=== PATIENT | male | born 1960 | race Caucasian/White ===

== ENCOUNTER 2018-01-17 21:10 | Emergency (ER) | payer OTHER ==
[~2018-01-17] VITALS: Ht 175.3 cm; Wt 72.3 kg
[~2018-01-17 21:10] MED LIST: ACYCLOVIR400 MG PO; ASPIRIN325 MG PO; AUGMENTIN80 MG/ML PO; AZITHROMYCIN250 MG1 PO; CARDIZEM30 MG PO; COLACE100 MG PO; COMBIVENT200 INHALA IH; DECADRON0.5 MG PO; DEXAMETHASONE4 MG PO; DEXAMETHASONE6 MG PO; DEXILANT60 MG PO; DIAZEPAM5 MG PO; DIOCTO50 MG/5 ML PO; FUROSEMIDE20 MG PO; GABAPENTIN300 MG PO; GABAPENTIN600 MG PO; HYCET 7.5 MG-3473 ML PO; LASIX20 MG PO; LITE COAT ASPI325 M1 PO; LORAZEPAM0.5 MG PO; LYRICA100 MG PO; MIRALAX17 GM PO; NASONEX17 GM BOTH NARES; NEURONTIN600 MG PO; NEXIUM20 MG PO; NICOTINE PATCH1 EACH TD; NORCO 5/3251 TABLET PO; OMEPRAZOLE-BIC1 EAC1 PO; OXYCODONE H5 MG/5 ML PO; OXYCODONE HCL10 MG PO; OXYCONTIN20 MG PO; OXYCONTIN30 MG PO; PERCOCET 5/31 TABLET PO; PRILOSEC10 MG PO; PROAIR RESPICL90 MCG IH; PROTONIX40 MG PO; REGLAN10 MG/10 M PO; ROXICODONE15 MG PO; SENNA176 MG/5 M PO; SENNA8.6 M1 PO; SPIRIVA1 INHALATI IH; SUPER B COMP1 TABLET PO; SUPER B-50 COM1 EACH PO; SYMBICORT60 INHALA1 IH; SYMBICORT60 INHALAT IH; VALIUM10 MG PO; VALIUM5 MG PO; VENLAFAXINE H37.5 MG PO; VENLAFAXINE HCL75 MG PO; VENTOLIN HFA18 GM IH; VITAMIN E400 UNIT PO; ZEGERID PO; ZOFRAN0.8 MG/1 M PO; ZOFRAN4 MG PO; [UNRECOGNIZED DRUG - REMARK] PO; mometasone
[2018-01-17 21:39] LABS: HEMATOCRIT 42.2 % (38.0-50.0); HEMOGLOBIN 14.5 G/DL (12.5-16.6); MCHC 34.4 G/DL (30.0-36.0); MCV 84.4 FL (86-99); PLATELET COUNT 217 K/uL (156-360); RBC DIS.WIDTH-SD 43.6 % (39-53); WHITE BLOOD COUNT 5.6 K/uL (4.1-10.2)
[2018-01-17 21:49] LABS: CHLORIDE 109 mEq/L (99-109); POTASSIUM 3.9 mEq/L (3.7-5.4); SODIUM 140 mEq/L (136-147)
[2018-01-17 21:51] LABS: GLUCOSE 119 mg/dL (70-99)
[2018-01-17 21:54] LABS: CREATININE 0.9 mg/dL (0.6-1.3); GFR ESTIMATE (CALCULATED) > 59 mL/min/ (58.99-99999)
[2018-01-17 21:55] LABS: UREA NITROGEN (BUN) 12 mg/dL (9-23)
[2018-01-17 22:01] LABS: APPEARANCE CLEAR ((CLEAR)); BILIRUBIN NEGATIVE; BLOOD NEGATIVE; COLOR YELLOW ((YELLOW)); GLUCOSE (STRIP) NEGATIVE; KETONES NEGATIVE; LEUKOCYTES NEGATIVE; NITRITE NEGATIVE; PROTEIN (STRIP) NEGATIVE; SPECIFIC GRAVITY 1.008 (1.000-1.030); UCUL ADDED? NO; UROBILINOGEN 0.2 MG/DL (0.2-1.0)
[2018-01-17 22:01] LABS: TROP-I INTERPRETATION NEGATIVE; TROPONIN-I < 0.01 ng/mL (0.0-0.30)
[2018-01-18] MEDS ORDERED: MEDROL DOSEPAK4 MG PO (00:26)
[2018-01-18] MEDS ORDERED: LEVAQUIN750 MG PO (00:26)
[2018-01-18] MEDS ORDERED: VENTOLIN HFA18 GM IH (00:26)
[2018-01-18 00:40] VITALS: BP 101/57
== END 2018-01-18 00:49 | disposition home or self-care (01) ==
LOC: EME 21:10
DX: J18.9 Pneumonia, unspecified organism (principal); J44.0 Chronic obstructive pulmonary disease with (acute) lower respiratory infection; C90.00 Multiple myeloma not having achieved remission; C15.9 Malignant neoplasm of esophagus, unspecified; Z79.899 Other long term (current) drug therapy; K21.9 Gastro-esophageal reflux disease without esophagitis; F41.9 Anxiety disorder, unspecified; F32.9 Major depressive disorder, single episode, unspecified; Z87.442 Personal history of urinary calculi; Z79.82 Long term (current) use of aspirin; Z88.8 Allergy status to other drugs, medicaments and biological substances
CPT/HCPCS: 71046; 80048; 81003; 84484; 85027; 93005; 99281; 99285; J2930; J7030

== ENCOUNTER → 2018-04-24 | Outpatient (CLI) | payer OTHER ==
[~2018-04-24] VITALS: Ht 175.3 cm; Wt 74.0 kg
[~2018-04-24] MED LIST changes: +LEVAQUIN750 MG PO; +MEDROL DOSEPAK4 MG PO
[2018-04-24 19:53] VITALS: BP 103/63
== END | disposition home or self-care (01) ==
LOC: IVINF 19:00
DX: E86.0 Dehydration (principal); C90.00 Multiple myeloma not having achieved remission; Z88.8 Allergy status to other drugs, medicaments and biological substances; Z91.09 Other allergy status, other than to drugs and biological substances
CPT/HCPCS: 96360; J7030